=== PATIENT | female | born 1955 | race Caucasian/White ===

== ENCOUNTER 2017-08-20 18:22 | Inpatient (IN) | payer OTHER ==
[~2017-08-20] VITALS: Ht 152.4 cm; Wt 67.1 kg
[~2017-08-20 18:22] MED LIST: AMOXICILLIN500 MG ORAL; NAPROSYN500 M1 ORAL; TAPAZOLE10 MG ORAL; UNOBMED
[2017-08-20 19:06] VITALS: BP 167/73
[2017-08-20 19:33] LABS: BASOPHILS % (AUTO) 1.8 % (0.0-2.0); EOSINOPHILS % (AUTO) 2.6 % (0.0-3.0); HEMATOCRIT 48.2 % (37.0-47.0); HEMOGLOBIN 16.4 G/DL (12.0-16.0); LYMPHOCYTES % (AUTO) 32.8 % (20.0-45.0); MEAN CORPUSCULAR VOLUME 85 FL (80-99); NEUTROPHILS % (AUTO) 55.9 % (45.0-75.0); PLATELET COUNT 201 K/UL (150-450); RED BLOOD COUNT 5.67 M/UL (4.20-5.40); RED CELL DISTRIBUTION WIDTH 10.4 % (11.6-14.8); WHITE BLOOD COUNT 6.9 K/UL (4.8-10.8)
[2017-08-20 19:37] LABS: ANION GAP 9 mmol/L (5-15); BLOOD UREA NITROGEN 8 mg/dL (7-18); CALCIUM 9.8 MG/DL (8.5-10.1); CARBON DIOXIDE 27 MMOL/L (21-32); CHLORIDE 103 MMOL/L (98-107); CREATININE 0.7 MG/DL (0.55-1.30); POTASSIUM 4.2 MMOL/L (3.5-5.1); SODIUM 139 MMOL/L (136-145)
[2017-08-20 19:50] LABS: ALANINE AMINOTRANSFERASE 20 U/L (12-78); ALBUMIN 3.9 G/DL (3.4-5.0); ALBUMIN/GLOBULIN RATIO 0.9 (1.0-2.7); ALKALINE PHOSPHATASE 151 U/L (46-116); ASPARTATE AMINO TRANSFERASE 17 U/L (15-37); BILIRUBIN,TOTAL 0.5 MG/DL (0.2-1.0); CKMB < 0.5 NG/ML (0.0-3.6); CREATINE KINASE 40 U/L (26-308)
--- NOTE | 2017-08-20 20:09 | Emergency Room Report ---
History of Present Illness General Chief Complaint: Chest Pain Source: Patient Present Illness HPI 22-year-old female comes ER With a history of hyperthyroidism with complaint of having chest pressure on the left side parasternal area She reports it radiates to her left arm She reports his on for 2 days now, with no associated shortness of breath, leg pain, leg swelling, cough, hemoptysis, syncope She reports no nausea, no vomiting no diarrhea no abdominal pain She reports it was more intense this afternoon is now somewhat improved She is not taking any medications for it She has never had a chest pain evaluation with a stress test in the past Allergies: Coded Allergies: No Known Allergies (Verified , 07/05/11) Patient History Past Medical History: see triage record Now: No Reviewed Nursing Documentation: PMH: Agreed; PSxH: Agreed Nursing Documentation-PMH Past Medical History: No History, Except For Review of Systems All Other Systems: negative except mentioned in HPI Physical Exam Vital Signs Date Time Temp Pulse Resp B/P (MAP) Pulse Ox O2 Delivery O2 Flow Rate FiO2 08/20/17 18:30 98.3 112 22 167/73 97 Room Air 98.2 Sp02 EP Interpretation: reviewed, normal General Appearance: no apparent distress, alert, non-toxic Head: normocephalic Eyes: bilateral eye normal inspection, bilateral eye PERRL, bilateral eye EOMI ENT: normal ENT inspection, hearing grossly normal, normal pharynx, no angioedema, normal voice, moist mucus membranes Neck: normal inspection, full range of motion, supple, supple/symm/no masses Respiratory: chest non-tender, lungs clear, normal breath sounds, chest symmetrical, palpation of chest normal Cardiovascular #1: normal peripheral pulses, regular rate, rhythm Cardiovascular #2: 2+ radial (R), 2+ radial (L) Gastrointestinal: normal inspection, non tender, soft, no mass, no guarding, no rebound Rectal: deferred Genitourinary: normal inspection, no CVA tenderness Musculoskeletal: back normal, gait/station normal, normal range of motion, non- tender, no calf tenderness Neurologic: alert, responsive, consumer insights intern III-XII nml as tested, motor strength/tone normal, sensory intact, speech normal Psychiatric: judgement/insight normal, memory normal, mood/affect normal, no suicidal/homicidal ideation Skin: normal color, no rash, warm/dry, normal turgor Lymphatic: no adenopathy Medical Decision Making Diagnostic Impression: Primary Impression: Chest pain ER Course 62-year-old female with chest pressure EKG with right bundle and tachycardia Will chest CTA for possible PE However patient will still need to be admitted for chest pain rule out And stress test, normal workup thus far, patient with no active chest pain here Given aspirin but not NTG bc pain free currently Admitted to Dr. Mae for CP r/o CT. EKG Diagnostic Results EKG Time: 18:26 EP Interpretation: RBBB no st-t changes, no twi Rate: tachycardiac Rhythm: NSR ST Segments: no acute changes ASA given to the pt in ED: Yes Rhythm Strip Diag. Results Rhythm Strip Time: 20:08 EP Interpretation: yes Rate: 96 Rhythm: NSR, no PVC's, no ectopy Chest X-Ray Diagnostic Results Chest X-Ray Diagnostic Results : Chest X-Ray Ordered: Yes # of Views/Limited/Complete: 1 View Indication: Chest Pain EP Interpretation: Yes PA Xray: Interpretation reviewed Interpretation: no consolidation, no effusion, no pneumothorax, no acute cardiopulmonary disease Impression: No acute disease Electronically Signed by: Daljit Best MD CT/MRI/US Diagnostic Results CT/MRI/US Diagnostic Results : Imaging Test Ordered: CTA chest Impression negative for PE Last Vital Signs Date Time Temp Pulse Resp B/P (MAP) Pulse Ox O2 Delivery O2 Flow Rate FiO2 08/20/17 19:06 112 22 Room Air 08/20/17 19:06 167/73 97 08/20/17 18:30 98.3 98.2 Disposition: ADMITTED INPATIENT Admit Decision Time: 21:41 Condition: Stable Signed Out To: DALJIT Bearden M.D August 20, 2017 20:09
[2017-08-20] MEDS ORDERED: Nitroglycerin Subl 0.4mg tab SL PRN ×2 (20:15→22:15)
[2017-08-20] MEDS ORDERED: Isovue-370 150ml vial INJ PRN (20:15)
[2017-08-20] MEDS ORDERED: Albuterol/Ipratropium 3ml neb HHN PRN (22:15)
[2017-08-20] MEDS ORDERED: Ketorolac 30mg Inj IV PRN (22:15)
[2017-08-20] MEDS ORDERED: Enalaprilat 2.5mg/2ml Inj IV PRN (22:15)
[2017-08-20] MEDS ORDERED: dilTIAZem HCl 25mg/5ml Inj IV PRN (22:15)
[2017-08-20] MEDS ORDERED: Miralax 17gm pkt ORAL PRN (22:15)
[2017-08-20 22:17] VITALS: BP 117/59
[2017-08-20 22:30] VITALS: BP 114/65
[2017-08-21] VITALS: BP 121/68
[2017-08-21 04:00] VITALS: BP 112/55
[2017-08-21 08:00] VITALS: BP 118/55
[2017-08-21 08:54] LABS: BASOPHILS % (AUTO) 1.9 % (0.0-2.0); EOSINOPHILS % (AUTO) 4.2 % (0.0-3.0); HEMATOCRIT 45.4 % (37.0-47.0); HEMOGLOBIN 14.9 G/DL (12.0-16.0); LYMPHOCYTES % (AUTO) 38.4 % (20.0-45.0); MEAN CORPUSCULAR VOLUME 86 FL (80-99); NEUTROPHILS % (AUTO) 47.5 % (45.0-75.0); PLATELET COUNT 183 K/UL (150-450); RED BLOOD COUNT 5.28 M/UL (4.20-5.40); RED CELL DISTRIBUTION WIDTH 10.9 % (11.6-14.8); WHITE BLOOD COUNT 6.4 K/UL (4.8-10.8)
[2017-08-21] MEDS ORDERED: Aspirin Baby 81mg ORAL SCH (09:00)
[2017-08-21] MEDS ORDERED: Heparin 5000 units/ml inj SUBQ SCH (09:00)
[2017-08-21 09:21] LABS: INR 0.9 (0.9-1.1)
--- NOTE | 2017-08-21 09:49 | Diagnostic Imaging Report ---
Indication: Chest pain Technique: Continuous helical transaxial imaging of the chest was obtained from the thoracic inlet to the upper abdomen during rapid intravenous contrast administration. Arterial phase of enhancement obtained. Coronal 2-D reformats were also obtained and maximum intensity projection images in multiple planes. Study obtained in a Siemens sensation [address] Automatic Exposure Control was utilized. Total Dose length Product (DLP): 576.[address] Dose Index Volume (CTDIvol): 18.72 mGy Comparison: None Findings: The pulmonary artery is well opacified and shows no filling defects. There is no adenopathy, pleural or pericardial effusions are identified. There is no aortic dissection or aneurysm identified within the chest. The lungs are clear. There is mild posterior basilar atelectasis demonstrated. Visualized part of the upper abdomen is unremarkable. The thyroid gland is enlarged and partially seen on this study. Impression: Negative CTA of the chest Enlarged thyroid gland. Correlate clinically The CT scanner at [facility] is accredited by the [employer] and the scans are performed using dose optimization techniques as appropriate to a performed exam including Automatic Exposure control.
[2017-08-21 10:02] LABS: CHOLESTEROL 163 MG/DL (< 200); HDL CHOLESTEROL 54 MG/DL (40-60); TRIGLYCERIDES 51 MG/DL (30-150)
--- NOTE | 2017-08-21 11:33 | Diagnostic Imaging Report ---
Indication: Chest pain Comparison: 07/04/2011 A single view chest radiograph was obtained. Findings: Cardiomediastinal appearance is within normal limits for age. Pulmonary vascularity is appropriate. The diaphragmatic contour is smooth and costophrenic angles are sharp. No pleural effusions are identified. The bones are unremarkable. Impression: No acute findings
[2017-08-21 12:00] VITALS: BP 129/67
--- NOTE | 2017-08-21 12:58 | History and Physical ---
History of Present Illness General Date patient seen: August 21, 2017 Reason for Hospitalization: Chest Pain Present Illness HPI pt was admitted last night through Er with CC of chest pain. she was treated symptomatically in ER and admitted to telemetry. Cardiology consult was called , Echo was ordered and done and reviewed. Multiple troponin were done. Pt decided to leave ama this morning. She didn't want to wait for cloth washer to see her. Allergies: Coded Allergies: No Known Allergies (Verified , 07/05/11) Medication History Scheduled Amoxicillin* (Amoxil*), 500 MG ORAL THREE TIMES A DAY Methimazole (Methimazole), 10 MG ORAL DAILY, (Reported) Naproxen* (Naprosyn*), 500 MG ORAL TWICE A DAY Patient History Healthcare decision maker Keyla Barragan Resuscitation status Full Code Advanced Directive on File Review of Systems Cardiovascular: Reports: chest pain Physical Exam General Appearance: WD/WN Lines, tubes and drains: peripheral, trach HEENT: normocephalic, atraumatic Neck: non-tender, normal alignment Respiratory/Chest: chest wall non-tender, lungs clear Breasts: no masses Cardiovascular/Chest: normal peripheral pulses Abdomen: non tender Last 24 Hour Vital Signs Date Time Temp Pulse Resp B/P (MAP) Pulse Ox O2 Delivery O2 Flow Rate FiO2 08/21/17 08:00 97.7 86 24 118/55 86 Room Air 97.7 08/21/17 08:00 95 08/21/17 04:00 97.5 83 20 112/55 94 Room Air 97.5 08/21/17 04:00 75 08/21/17 00:00 98.2 87 20 121/68 96 Room Air 98.2 08/21/17 00:00 77 08/20/17 22:30 98.2 100 18 114/65 98 Room Air 98.2 08/20/17 22:20 98.3 98 20 117/59 98 Room Air 98.3 08/20/17 22:17 98.3 98 20 117/59 98 Room Air 98.3 08/20/17 19:06 112 22 Room Air 08/20/17 19:06 99 23 167/73 97 Room Air 08/20/17 18:30 98.3 112 22 167/73 97 Room Air 98.2 Intake and Output 08/20/17 08/21/17 19:00 07:00 Intake Total 200 ml Balance 200 ml Intake Oral 200 ml Laboratory Tests Test 08/20/17 18:57 08/21/17 07:45 White Blood Count 6.9 K/UL (4.8-10.8) 6.4 K/UL (4.8-10.8) Red Blood Count 5.67 M/UL (4.20-5.40) H 5.28 M/UL (4.20-5.40) Hemoglobin 16.4 G/DL (12.0-16.0) H 14.9 G/DL (12.0-16.0) Hematocrit 48.2 % (37.0-47.0) H 45.4 % (37.0-47.0) Mean Corpuscular Volume 85 FL (80-99) 86 FL (80-99) Mean Corpuscular Hemoglobin 28.9 PG (27.0-31.0) 28.3 PG (27.0-31.0) Mean Corpuscular Hemoglobin Concent 34.0 G/DL (32.0-36.0) 32.9 G/DL (32.0-36.0) Red Cell Distribution Width 10.4 % (11.6-14.8) L 10.9 % (11.6-14.8) L Platelet Count 201 K/UL (150-450) 183 K/UL (150-450) Mean Platelet Volume 8.4 FL (6.5-10.1) 8.9 FL (6.5-10.1) Neutrophils (%) (Auto) 55.9 % (45.0-75.0) 47.5 % (45.0-75.0) Lymphocytes (%) (Auto) 32.8 % (20.0-45.0) 38.4 % (20.0-45.0) Monocytes (%) (Auto) 7.0 % (1.0-10.0) 8.0 % (1.0-10.0) Eosinophils (%) (Auto) 2.6 % (0.0-3.0) 4.2 % (0.0-3.0) H Basophils (%) (Auto) 1.8 % (0.0-2.0) 1.9 % (0.0-2.0) Sodium Level 139 MMOL/L (136-145) Potassium Level 4.2 MMOL/L (3.5-5.1) Chloride Level 103 MMOL/L (98-107) Carbon Dioxide Level 27 MMOL/L (21-32) Anion Gap 9 mmol/L (5-15) Blood Urea Nitrogen 8 mg/dL (7-18) Creatinine 0.7 MG/DL (0.55-1.30) Estimat Glomerular Filtration Rate > 60 mL/min (>60) Glucose Level 154 MG/DL (74-106) H Calcium Level 9.8 MG/DL (8.5-10.1) Total Bilirubin 0.5 MG/DL (0.2-1.0) Aspartate Amino Transf (AST/SGOT) 17 U/L (15-37) Alanine Aminotransferase (ALT/SGPT) 20 U/L (12-78) Alkaline Phosphatase 151 U/L (46-116) H Total Creatine Kinase 40 U/L (26-308) Creatine Kinase MB < 0.5 NG/ML (0.0-3.6) Creatine Kinase MB Relative Index 1.2 Troponin I 0.000 ng/mL (0.000-0.056) 0.000 ng/mL (0.000-0.056) Pro-B-Type Natriuretic Peptide 141 pg/mL (0-125) H Total Protein 8.4 G/DL (6.4-8.2) H Albumin 3.9 G/DL (3.4-5.0) Globulin 4.5 g/dL Albumin/Globulin Ratio 0.9 (1.0-2.7) L Prothrombin Time 9.8 SEC (9.30-11.50) Prothromb Time International Ratio 0.9 (0.9-1.1) Activated Partial Thromboplast Time 26 SEC (23-33) C-Reactive Protein, Quantitative < 0.4 mg/dL (0.00-0.90) Triglycerides Level 51 MG/DL (30-150) Cholesterol Level 163 MG/DL (< 200) LDL Cholesterol 104 mg/dL (<100) H HDL Cholesterol 54 MG/DL (40-60) Cholesterol/HDL Ratio 3.0 (3.3-4.4) L Thyroid Stimulating Hormone (TSH) < 0.007 uiU/mL (0.358-3.740) Height (Feet): 5 Weight (Pounds): 148 Medications Current Medications Medications (Trade) Dose Ordered Sig/Ashlye Route PRN Reason Start Time Stop Time Status Last Admin Dose Admin Acetaminophen (Tylenol) 650 mg Q4H PRN ORAL FEVER 08/20/17 22:15 09/19/17 22:14 Albuterol/ Ipratropium (Albuterol/ Ipratropium) 3 ml EVERY 4 HOURS PRN HHN Shortness of Breath 08/20/17 22:15 08/25/17 22:14 Aspirin (ASA) 162 mg DAILY ORAL 08/21/17 09:00 09/20/17 08:59 08/21/17 08:56 Diltiazem HCl (Cardizem) 10 mg EVERY HOUR PRN IV heart rate more than 120, 08/20/17 22:15 09/19/17 22:14 Enalaprilat (Vasotec) 2.5 mg EVERY 6 HOURS PRN IV sbp more than 160 08/20/17 22:15 09/19/17 22:14 Heparin Sodium (Porcine) (Heparin 5000 units/ml) 5,000 units EVERY 12 HOURS SUBQ 08/21/17 09:00 09/20/17 08:59 08/21/17 09:00 Iopamidol (Isovue-370 150ml) 150 ml NOW PRN INJ Radiology Procedure 08/20/17 20:15 08/22/17 20:04 Ketorolac Tromethamine (Toradol 30mg) 30 mg Q6HR PRN IV moderate pain ( 4-6) 08/20/17 22:15 08/25/17 22:14 Methimazole (Tapazole) 10 mg DAILY ORAL 08/22/17 09:00 09/21/17 08:59 Nitroglycerin (Ntg) 0.4 mg PRN PRN SL Prn Chest Pain 08/20/17 22:15 09/19/17 22:14 Nitroglycerin (Ntg) 0.4 mg Q5M PRN SL Prn Chest Pain 08/20/17 20:15 09/19/17 20:14 Ondansetron HCl (Zofran) 4 mg Q6H PRN IVP Nausea & Vomiting 08/20/17 22:15 09/19/17 22:14 Polyethylene Glycol (Miralax) 17 gm DAILYPRN PRN ORAL Constipation 08/20/17 22:15 09/19/17 22:14 Temazepam (Restoril) 15 mg HSPRN PRN ORAL Insomnia 08/20/17 22:15 08/27/17 22:14 Assessment/Plan Problem List: (1) Chest pain ICD Codes: R07.9 - Chest pain, unspecified SNOMED: [id number] Assessment/Plan serial ekg, troponin echo done and reviewed, pt didn't want to way to be seen . Odalis Mae MD August 21, 2017 12:58
--- NOTE | 2017-08-21 18:13 | Cardiology Report ---
APPROVED REPORT EKG Measurement Heart [id number] OR [id number] Sinus tachycardia Biatrial enlargement Right bundle branch block Abnormal ECG
--- NOTE | 2017-08-22 00:15 | Consultation ---
DATE OF CONSULTATION: 08/21/2017 NOTE: POOR AUDIO HEMATOLOGY/ONCOLOGY CONSULTATION CONSULTING PHYSICIAN: Lane Leblanc M.D. REQUESTING PHYSICIAN: Odalis Mae M.D. REASON FOR CONSULTATION: Evaluation of erythrocytosis as well as . IDENTIFICATION DATA: Dear Dr. Mae, The patient is a pleasant 62-year-old female with past medical history, which is significant for right bundle-branch block and tachycardia. She had a CAT scan that was completed. It shows negative for PE. She has been to the ER multiple times in the past with pharyngitis as well as pain, past medical history again significant for hypertension, at this time presents to the ER with chest pain radiating to the left arm. It has been ongoing for the past several days. No nausea. No vomiting. No diarrhea. No constipation. Noted to have a hemoglobin, which is elevated at 16.4 . Hematology Service was consulted for further evaluation and treatment. PAST MEDICAL HISTORY: As noted above. PAST SURGICAL HISTORY: None noted. ALLERGIES: No known drug allergies. REVIEW OF SYSTEMS: CONSTITUTIONAL: No fevers, chills, or night sweats. SKIN: No rash, bumps, or itching. HEENT: No headache, hearing or vision changes. BREASTS: No lumps, pain, or discharge. PULMONARY: No cough, sputum, or shortness of breath. GASTROINTESTINAL: No nausea, vomiting, or diarrhea. GENITOURINARY: No dysuria, frequency, or urgency. MUSCULOSKELETAL: No joint swelling, muscle pain, or trauma. LABORATORY DATA: INR 0.9. BUN of 8 and creatinine 0.7. WBC 6.9, hemoglobin 16.4, hematocrit 48, and platelet count 201,000. IMAGING: CTA of the chest reviewed shows negative CT of the chest . ASSESSMENT AND RECOMMENDATIONS: 1. Erythrocytosis potentially secondary to dehydration versus other causes. We will need to consider further workup pulmonary status. The patient has had imaging performed. She has had a CTA completed and is negative at this time. She has had a chest x-ray, no acute findings noted. Pulmonary vascularity within normal limits. 2. Eosinophilia, elevated at 4.3. WBC count currently is at 6.4. Closely monitor, potentially secondary to recently started medications versus other causes. 3. Chest pain, rule out acute coronary syndrome. Hematology/Oncology Service is ongoing for the past several days and to be seen by wrist liner. A 2D echo is pending troponin and EKG. 4. Hyperlipidemia. The patient is currently on statins. LDL goal less than 100. 5. Right bundle-branch block. No PVCs noted. Normal sinus rhythm. I appreciate the consultation. Lane Leblanc M.D. DR: ANDRY JOB#: [id number] CC:
--- NOTE | 2017-08-22 10:58 | Cardiology Report ---
APPROVED REPORT EXAM: Two-dimensional and M-mode echocardiogram with Doppler and color Doppler. INDICATION LV FUNCTION M-Mode DIMENSIONS IVSd1.0 (0.7-1.1cm)Left Atrium (MM)3.3 (1.6-4.0cm) LVDd3.6 (3.5-5.6cm)Aortic Root3.1 (2.0-3.7cm) PWd1.1 (0.7-1.1cm)Aortic Cusp Exc.1.8 (1.5-2.0cm) IVSs1.2 cm LVDs2.1 (2.5-4.0cm) PWs1.4 cm Normal left ventricular chamber size, systolic function and wall motion. Left ventricular ejection fraction estimated to be 65-70 %. No evidence of left ventricular hypertrophy. No evidence of pericardial effusion. All other cardiac chamber sizes are within normal limits. Focal aortic valve sclerosis with adequate cusp excursion. Thickened mitral valve leaflets with normal excursion. Mitral annulus and aortic root calcification. Normal pulmonic valve structure. Normal tricuspid valve structure. IVC at normal size with physiologic collapse. A color flow and spectral Doppler study was performed and revealed: Mild aortic regurgitation. Trace mitral regurgitation. Mitral diastolic velocities suggest reduced left ventricular relaxation c/w mild LV diastolic dysfunction (Grade I ). Trace tricuspid regurgitation. Tricuspid systolic velocities suggests peak right ventricular systolic pressure of 29 mmHg No Pulmonic regurgitation present.
--- NOTE | 2017-08-22 13:12 | Discharge Summary ---
Discharge Summary Discharge Summary Discharge Summary DATE OF ADMISSION: 08/20/2017 DATE OF DISCHARGE: 08/21/2017 CONSULTANTS: Dr. Lane Leblanc [facility] HOSPITAL COURSE: Patient is a 62-year-old female, presented to ER complaining of chest pain. She has history of hyperthyroidism and was complaining of chest pressure on the left parasternal area radiating to the left arm. Symptoms has been ongoing for 2 days, there was no associated shortness of breath, leg pain, leg swelling, cough, hemoptysis or syncope. On evaluation at ED, initial troponin was negative. EKG with right bundle branch block, no ST to T wave changes. Chest x-ray showed no acute findings. Chest CTA was negative. She was given aspirin. She was then admitted for evaluation of acute coronary syndrome. She had erythrocytosis, hemoglobin of 16, hematocrit 48. She also had eosinophilia 4.3. Echocardiogram done showed EF 65-70%. Full treatment was not carried out as patient left AGAINST MEDICAL ADVICE. FINAL DIAGNOSES: Chest pain Erythrocytosis Eosinophilia Hyperlipidemia Right bundle branch block DISPOSITION: Patient left AMA I have been assigned to dictate discharge summary on this account, and I was not involved in the patient's management. Bobbi Oswald NP August 22, 2017 13:12
== END 2017-08-21 12:00 | disposition left against medical advice (07) | DRG 313 ==
LOC: EMR 20:24 → 2E 20:25 → EDBEDREQ 21:16
DX: R07.9 Chest pain, unspecified (principal); D75.1 Secondary polycythemia; D72.1 Eosinophilia; E78.5 Hyperlipidemia, unspecified; I45.10 Unspecified right bundle-branch block; E86.0 Dehydration
CPT/HCPCS: 36415; 71045; 71275; 80053; 80061; 82550; 82553; 83880; 84443; 84484; 85025; 85610; 85730; 86140; 93005; 93306; 99285

== ENCOUNTER 2019-05-15 23:41 | Emergency (ER) | payer OTHER ==
[~2019-05-15] VITALS: Ht 152.4 cm; Wt 6.4 kg
--- NOTE | 2019-05-15 23:45 | NUR ---
pt not in waiting room
[2019-05-15] MEDS ORDERED: LOPRESSOR5 MG/5 ML PO (23:58)
[2019-05-16] VITALS: BP 140/73
--- NOTE | 2019-05-16 | NUR ---
ED Nurse Note: Pt walked into ED c/o palpitations today at 2130.Stated that she feels like her heart is pounding and beating fast. Pt is taking lopressor 25mg but hasnt taken the meds for 2 days because she ran out of it. Pt has hx of afib. Denies chest pain, dizziness. Not in any distress. No SOB. HR is 120.
--- NOTE | 2019-05-16 00:05 | NUR ---
ED Nurse Note: ERMD at bedside.
[2019-05-16] MEDS ORDERED: dilTIAZem HCl 25mg/5ml Inj IV ONE (00:15)
--- NOTE | 2019-05-16 00:19 | NUR ---
ED Nurse Note: IV line established. Blood and urine specimen collected and sent to lab.
[2019-05-16 00:46] LABS: APPEARANCE,URINE CLEAR; BILIRUBIN, URINE NEGATIVE (NEGATIVE); COLOR,URINE PALE YELLOW; GLUCOSE, URINE (UA) NEGATIVE (NEGATIVE); KETONES,URINE NEGATIVE (NEGATIVE); LEUKOCYTE ESTERASE ,URINE 1+ (NEGATIVE); NITRITE,URINE NEGATIVE (NEGATIVE); PH,URINE 6 (4.5-8.0); PROTEIN,URINE NEGATIVE (NEGATIVE); UROBILINOGEN,URINE NORMAL MG/DL (0.0-1.0)
[2019-05-16 00:46] LABS: BASOPHILS % (AUTO) 1.9 % (0.0-2.0); EOSINOPHILS % (AUTO) 2.6 % (0.0-3.0); HEMATOCRIT 46.9 % (37.0-47.0); HEMOGLOBIN 16.8 G/DL (12.0-16.0); LYMPHOCYTES % (AUTO) 31.6 % (20.0-45.0); MEAN CORPUSCULAR VOLUME 86 FL (80-99); MONOCYTES % (AUTO) 7.4 % (1.0-10.0); NEUTROPHILS % (AUTO) 56.5 % (45.0-75.0); PLATELET COUNT 263 K/UL (150-450); RED BLOOD COUNT 5.48 M/UL (4.20-5.40); RED CELL DISTRIBUTION WIDTH 11.3 % (11.6-14.8); WHITE BLOOD COUNT 9.4 K/UL (4.8-10.8)
[2019-05-16 00:59] LABS: ANION GAP 9 mmol/L (5-15); BLOOD UREA NITROGEN 8 mg/dL (7-18); CALCIUM 8.8 MG/DL (8.5-10.1); CARBON DIOXIDE 27 MMOL/L (21-32); CHLORIDE 103 MMOL/L (98-107); CREATININE 0.7 MG/DL (0.55-1.30); POTASSIUM 3.6 MMOL/L (3.5-5.1); SODIUM 139 MMOL/L (136-145)
--- NOTE | 2019-05-16 00:59 | Diagnostic Imaging Report ---
EXAM: XR Chest, 1 View CLINICAL HISTORY: PREOP TECHNIQUE: Frontal view of the chest. COMPARISON: 04/12/2019. FINDINGS: Lungs: Possible mild pulmonary vascular congestion. No focal consolidation. Pleural space: Unremarkable. No pneumothorax. Heart: Unremarkable. No cardiomegaly. Mediastinum: Unremarkable. Bones/joints: Unremarkable. IMPRESSION: Possible mild pulmonary vascular congestion. No focal consolidation.
[2019-05-16 01:12] LABS: ALANINE AMINOTRANSFERASE 17 U/L (12-78); ALBUMIN 3.9 G/DL (3.4-5.0); ALKALINE PHOSPHATASE 106 U/L (46-116); ASPARTATE AMINO TRANSFERASE 18 U/L (15-37); BILIRUBIN,TOTAL 0.4 MG/DL (0.2-1.0)
--- NOTE | 2019-05-16 01:17 | Emergency Room Report ---
History of Present Illness General Chief Complaint: Palpitations Source: Patient Present Illness HPI 63-year-old female presents with palpitations, started at 2130, patient reports that she ran out of her Lopressor 3 days ago, she has been taking her Eliquis every day, her palpitations are aggravated by not taking her Lopressor alleviated by taking her Lopressor severity is mild, constant, no chest pain no shortness of breath no nausea no vomiting patient presents for evaluation Allergies: Coded Allergies: No Known Allergies (Verified , 07/05/11) Patient History Past Medical History: see triage record Reviewed Nursing Documentation: PMH: Agreed; PSxH: Agreed Nursing Documentation-PMH Hx Cancer: No Hx Gastrointestinal Problems: No Hx Neurological Problems: No - hyperthyrodism Review of Systems All Other Systems: negative except mentioned in HPI Physical Exam Vital Signs Date Time Temp Pulse Resp B/P (MAP) Pulse Ox O2 Delivery O2 Flow Rate FiO2 05/15/19 23:52 98.1 120 16 140/73 (95) 95 Room Air Sp02 EP Interpretation: reviewed, normal General Appearance: well appearing, no apparent distress, alert Head: normocephalic, atraumatic Eyes: bilateral eye PERRL, bilateral eye EOMI ENT: uvula midline, moist mucus membranes Neck: supple, thyroid normal, supple/symm/no masses Respiratory: lungs clear, no respiratory distress, no retraction, no accessory muscle use Cardiovascular #1: normal peripheral pulses, no edema, no gallop, no murmur, tachycardia, irregularly irregular Gastrointestinal: non tender, soft, no guarding, no rebound Musculoskeletal: normal inspection Neurologic: alert, oriented x3 Psychiatric: mood/affect normal Skin: no rash, warm/dry Medical Decision Making Diagnostic Impression: Primary Impression: Palpitations Additional Impression: Atrial fibrillation Qualified Codes: I48.0 - Paroxysmal atrial fibrillation ER Course 63-year-old female presents with palpitations, tachycardia, patient ran out of her metoprolol Patient has been taking her Eliquis every day, will refill her metoprolol 1 dose of diltiazem was given and her heart rate improved Repeat EK 14: NSR, rate 70, QTc 462, right bundle branch block, no acute ST elevations Disposition home with return precautions Laboratory Tests Test 05/16/19 00:02 05/16/19 00:17 Urine Color Pale yellow Urine Appearance Clear Urine pH 6 (4.5-8.0) Urine Specific [place] 1.005 (1.005-1.035) Urine Protein Negative (NEGATIVE) Urine Glucose (UA) Negative (NEGATIVE) Urine Ketones Negative (NEGATIVE) Urine Blood 2+ (NEGATIVE) H Urine Nitrite Negative (NEGATIVE) Urine Bilirubin Negative (NEGATIVE) Urine Urobilinogen Normal MG/DL (0.0-1.0) Urine Leukocyte Esterase 1+ (NEGATIVE) H Urine RBC 0-2 /HPF (0 - 2) Urine WBC 0-2 /HPF (0 - 2) Urine Squamous Epithelial Cells Occasional /LPF Urine Bacteria Occasional /HPF (NONE) White Blood Count 9.4 K/UL (4.8-10.8) Red Blood Count 5.48 M/UL (4.20-5.40) H Hemoglobin 16.8 G/DL (12.0-16.0) H Hematocrit 46.9 % (37.0-47.0) Mean Corpuscular Volume 86 FL (80-99) Mean Corpuscular Hemoglobin 30.7 PG (27.0-31.0) Mean Corpuscular Hemoglobin Concent 35.9 G/DL (32.0-36.0) Red Cell Distribution Width 11.3 % (11.6-14.8) L Platelet Count 263 K/UL (150-450) Mean Platelet Volume 7.9 FL (6.5-10.1) Neutrophils (%) (Auto) 56.5 % (45.0-75.0) Lymphocytes (%) (Auto) 31.6 % (20.0-45.0) Monocytes (%) (Auto) 7.4 % (1.0-10.0) Eosinophils (%) (Auto) 2.6 % (0.0-3.0) Basophils (%) (Auto) 1.9 % (0.0-2.0) Prothrombin Time 10.3 SEC (9.30-11.50) Prothrombin Time INR 1.0 (0.9-1.1) Activated Partial Thromboplast Time 30 SEC (23-33) Sodium Level 139 MMOL/L (136-145) Potassium Level 3.6 MMOL/L (3.5-5.1) Chloride Level 103 MMOL/L (98-107) Carbon Dioxide Level 27 MMOL/L (21-32) Anion Gap 9 mmol/L (5-15) Blood Urea Nitrogen 8 mg/dL (7-18) Creatinine 0.7 MG/DL (0.55-1.30) Estimate Glomerular Filtration Rate > 60 mL/min (>60) Glucose Level 117 MG/DL (74-106) H Calcium Level 8.8 MG/DL (8.5-10.1) Total Bilirubin 0.4 MG/DL (0.2-1.0) Aspartate Amino Transferase (AST) 18 U/L (15-37) Alanine Aminotransferase (ALT) 17 U/L (12-78) Alkaline Phosphatase 106 U/L (46-116) Troponin I 0.000 ng/mL (0.000-0.056) Pro-B-Type Natriuretic Peptide 153 pg/mL (0-125) H Total Protein 7.9 G/DL (6.4-8.2) Albumin 3.9 G/DL (3.4-5.0) Globulin 4.0 g/dL Albumin/Globulin Ratio 1.0 (1.0-2.7) Thyroid Stimulating Hormone (TSH) 1.998 uiU/mL (0.358-3.740) Free Thyroxine 0.33 NG/DL (0.76-1.46) L Free Triiodothyronine 2.3 pg/mL (2.3-4.2) EKG Diagnostic Results EKG Time: 00:15 EP Interpretation: Sinus tachycardia, rate 109, QTc 495, no acute ST elevations , right axis de Rhythm Strip Diag. Results Rhythm Strip Time: 01:16 EP Interpretation: yes Rate: 76 Rhythm: NSR, no PVC's, no ectopy Chest X-Ray Diagnostic Results Chest X-Ray Diagnostic Results : Chest X-Ray Ordered: Yes # of Views/Limited/Complete: 1 View Indication: Chest Pain EP Interpretation: Yes Interpretation: no consolidation, no effusion, no pneumothorax, no acute cardiopulmonary disease Impression: No acute disease Electronically Signed by: Pedro Zurita MD Last Vital Signs Date Time Temp Pulse Resp B/P (MAP) Pulse Ox O2 Delivery O2 Flow Rate FiO2 05/16/19 00:23 120 140/73 05/16/19 00:00 98.1 16 95 Room Air Disposition: HOME, SELF-CARE Condition: Stable Scripts Metoprolol Succinate* (METOPROLOL SUCCINATE*) 25 Mg Tab.er.24h 25 MG ORAL DAILY, #30 TAB Prov: Pedro Zurita MD 05/16/19 Ref[facility]: [facility]. [facility] Patient Instructions: Atrial Fibrillation, [id number] Additional Instructions: The patient was provided with discharge instructions, notified to follow-up with a primary care doctor and or specialist in the next 24-48 hours, and to return to the ED if they have worsening of their symptoms. Please note that this report is being documented using [employer] technology. This can lead to erroneous entry secondary to incorrect interpretation by the dictating instrument. Pedro Zurita MD May 16, 2019 01:17
[2019-05-16 02:01] VITALS: BP 97/56
[2019-05-16] MEDS ORDERED: METOPROLOL SUCC25 MG ORAL (02:21)
[2019-05-16 02:30] VITALS: BP_SYST 98; BP_DIAS 52; BP_DIAS 60
--- NOTE | 2019-05-16 02:30 | NUR ---
ED Nurse Note: Pt cleared by ERMD for discharge. DC instructions/prescription was given and explained to pt and verbalized understanding of teachings. All medical deviecs such as ID band and IV line removed. Pt is AAO x4, ambulatory and left with all personal belongings.
== END 2019-05-16 02:30 | disposition home or self-care (01) ==
LOC: EMR 05-16 02:30
DX: R00.2 Palpitations (principal); I48.0 Paroxysmal atrial fibrillation; Z79.01 Long term (current) use of anticoagulants; I45.10 Unspecified right bundle-branch block; R00.0 Tachycardia, unspecified
CPT/HCPCS: 36415; 71045; 80053; 81003; 83880; 84439; 84443; 84481; 84484; 85025; 85610; 85730; 93005; 96361; 96374; 99284; J7030

== ENCOUNTER 2019-12-28 01:24 | Emergency (ER) | payer SELFPAY ==
[~2019-12-28] VITALS: Ht 157.5 cm; Wt 68.0 kg
[~2019-12-28 01:24] MED LIST changes: +LOPRESSOR5 MG/5 ML PO; +METOPROLOL SUCC25 MG ORAL
[2019-12-28] MEDS ORDERED: ASPIRIN81 MG ORAL (01:36)
--- NOTE | 2019-12-28 01:37 | NUR ---
ED Nurse Note: Patient brought in by ambulance [id number] from home d/t palpitations. Per pt, she has had history of afib and has to be cardioverted. Patient aao x 4 and ambulatory with steady gait. Patient on nasal cannula 2L upon arrival, changed into gown and placed on athletic monitor. No acute distress noted during assessment.
[2019-12-28 01:39] VITALS: BP 140/107
[2019-12-28] MEDS ORDERED: dilTIAZem HCl 25mg/5ml Inj IVP ONE ×2 (01:45→02:00)
--- NOTE | 2019-12-28 01:46 | Emergency Room Report ---
History of Present Illness General Chief Complaint: Palpitations Source: Patient Present Illness HPI 64-year-old female with a history of atrial fibrillation and high blood pressure. She is taking metoprolol for it. She was on Eliquis but because of the cost, her doctor just put her on aspirin. She presents with chief complaint of palpitation. Onset about 2 hours ago. She said her heart rate was beating fast. She took an extra dose of metoprolol. He said it did not help. No shortness of breath. No fever or chills. No cough or congestion. No chest pain. Similar symptom in the past. She said this year she had 4 episodes already. She does admit to weight gain during the pandemic. She said her blood pressures been running high. Allergies: Coded Allergies: No Known Allergies (Verified , 12/28/19) COVID-19 Screening Contact w/high risk pt: No Experienced COVID-19 symptoms?: No COVID-19 Testing performed PASTA MAKER: No Patient History Past Medical History: see triage record, old chart reviewed, HTN, AFib Past Surgical History: none Pertinent Family History: other Social History: Reports: smoking Last Menstrual Period: n/a Now: No Immunizations: other Reviewed Nursing Documentation: PMH: Agreed; PSxH: Agreed Nursing Documentation-PMH Past Medical History: No History, Except For Hx Cancer: No Hx Gastrointestinal Problems: No Hx Neurological Problems: No - hyperthyrodism Review of Systems Eye: Denies: eye pain, blurred vision ENT: Denies: ear pain, nose congestion, throat swelling Respiratory: Denies: cough, shortness of breath Cardiovascular: Reports: palpitations; Denies: chest pain Gastrointestinal: Denies: abdominal pain, diarrhea, nausea, vomiting Musculoskeletal: Denies: back pain, joint pain Skin: Denies: rash Neurological: Denies: headache, numbness Endocrine: Denies: increased thirst, increased urine Hematologic/Lymphatic: Denies: easy bruising All Other Systems: negative except mentioned in HPI Physical Exam Vital Signs Date Time Temp Pulse Resp B/P (MAP) Pulse Ox O2 Delivery O2 Flow Rate FiO2 12/28/19 01:21 98.8 173 20 200/91 (127) 98 Room Air 12/28/19 01:39 2.0 Vitals with high blood pressure. Sp02 EP Interpretation: reviewed, normal General Appearance: well appearing, no apparent distress, alert, obese Head: normocephalic, atraumatic Eyes: bilateral eye PERRL, bilateral eye EOMI ENT: hearing grossly normal, normal pharynx Neck: full range of motion, supple, no meningismus Respiratory: chest non-tender, lungs clear, normal breath sounds Cardiovascular #1: no murmur, tachycardia, irregularly irregular Gastrointestinal: normal bowel sounds, non tender, no mass, no organomegaly, no bruit, non-distended Musculoskeletal: back normal, normal range of motion, gait/station normal Psychiatric: mood/affect normal Medical Decision Making Diagnostic Impression: Primary Impression: Paroxysmal atrial fibrillation with RVR Additional Impression: Hypertension Qualified Codes: I10 - Essential (primary) hypertension ER Course This patient presents with paroxysmal A. fib. No evidence of ACS, PE, dissection. She is back in sinus now. Because of her weight gain, her blood pressure is elevated. We will increase her metoprolol. EKG Diagnostic Results Rate: tachycardiac Rhythm: other - Atrial fibrillation ST Segments: other - Bifascicular block Rhythm Strip Diag. Results EP Interpretation: yes Rate: 73 Rhythm: NSR, no PVC's, no ectopy Chest X-Ray Diagnostic Results Chest X-Ray Diagnostic Results : Chest X-Ray Ordered: Yes # of Views/Limited/Complete: 1 View Indication: Shortness of Breath EP Interpretation: Yes Interpretation: no consolidation, no effusion, no pneumothorax, no acute cardiopulmonary disease Impression: No acute disease Electronically Signed by: Bib Agosto MD Last Vital Signs Date Time Temp Pulse Resp B/P (MAP) Pulse Ox O2 Delivery O2 Flow Rate FiO2 12/28/19 01:39 98.8 132 24 140/107 100 Nasal Cannula 2.0 Status: improved Disposition: HOME, SELF-CARE Condition: Stable Scripts Metoprolol Succinate* (METOPROLOL SUCCINATE*) 100 Mg Tab.er.24h 50 MG ORAL DAILY, #90 TAB Prov: Bib Agosto MD 12/28/19 Additional Instructions: Follow-up with your doctor in 7 days. You may benefit from seeing a carcass trimmer. Increase your blood pressure medication to 50 mg a day. Return if symptoms worsen. Bib Agosto MD Dec 28, 2019 01:46
[2019-12-28 01:57] LABS: BASOPHILS % (AUTO) 2.9 % (0.0-2.0); HEMATOCRIT 44.4 % (37.0-47.0); HEMOGLOBIN 15.7 G/DL (12.0-16.0); MEAN CORPUSCULAR VOLUME 86 FL (80-99); MONOCYTES % (AUTO) 9.5 % (1.0-10.0); NEUTROPHILS % (AUTO) 52.6 % (45.0-75.0); PLATELET COUNT 208 K/UL (150-450); RED BLOOD COUNT 5.17 M/UL (4.20-5.40); RED CELL DISTRIBUTION WIDTH 11.2 % (11.6-14.8); WHITE BLOOD COUNT 9.5 K/UL (4.8-10.8)
--- NOTE | 2019-12-28 01:57 | NUR ---
ED Nurse Note: Xray at bedside
[2019-12-28 02:04] LABS: ANION GAP 15 mmol/L (5-15); BLOOD UREA NITROGEN 12 mg/dL (7-18); CALCIUM 9.5 MG/DL (8.5-10.1); CARBON DIOXIDE 30 MMOL/L (21-32); CHLORIDE 100 MMOL/L (98-107); CREATININE 0.8 MG/DL (0.55-1.30); POTASSIUM 3.2 MMOL/L (3.5-5.1); SODIUM 145 MMOL/L (136-145)
[2019-12-28 02:08] LABS: ALANINE AMINOTRANSFERASE 18 U/L (12-78); ALBUMIN 3.7 G/DL (3.4-5.0); ALBUMIN/GLOBULIN RATIO 0.9 (1.0-2.7); ALKALINE PHOSPHATASE 88 U/L (46-116); ASPARTATE AMINO TRANSFERASE 13 U/L (15-37); BILIRUBIN,TOTAL 0.3 MG/DL (0.2-1.0)
[2019-12-28 02:11] VITALS: BP 123/65
[2019-12-28 02:11] LABS: APPEARANCE,URINE CLEAR; BILIRUBIN, URINE NEGATIVE (NEGATIVE); COLOR,URINE PALE YELLOW; GLUCOSE, URINE (UA) NEGATIVE (NEGATIVE); KETONES,URINE NEGATIVE (NEGATIVE); LEUKOCYTE ESTERASE ,URINE NEGATIVE (NEGATIVE); NITRITE,URINE NEGATIVE (NEGATIVE); PH,URINE 6.5 (4.5-8.0); PROTEIN,URINE NEGATIVE (NEGATIVE); UROBILINOGEN,URINE NORMAL MG/DL (0.0-1.0)
[2019-12-28] MEDS ORDERED: METOPROLOL SUC100 MG ORAL (03:44)
[2019-12-28 04:00] VITALS: BP 100/52
--- NOTE | 2019-12-28 04:00 | NUR ---
ER DISCHARGE NOTE: Patient is cleared to be discharged per ERMD, pt is aox4, on room air, with stable vital signs. pt was given dc and prescription instructions, pt was able to verbalize understanding, pt id band and iv site removed intact without complications. pt is able to ambulate with steady gait. pt took all belongings. pt stable upon discharge.
--- NOTE | 2019-12-28 11:25 | Diagnostic Imaging Report ---
Procedure: XRAY Chest 1v Reason for study: Chest pain Comparison films: 05/16/2019. FINDINGS: A single one view chest is obtained. Vascularity is normal. The lung prasad are clear bilaterally. Cardiac and mediastinal silhouette are within normal limits. CP angles are sharp. The bony thorax appear unremarkable. IMPRESSION: NO ACUTE CARDIOPULMONARY DISEASE.
--- NOTE | 2019-12-28 14:11 | Cardiology Report ---
APPROVED REPORT EKG Measurement Heart [id number] <Conclusion> Atrial fibrillation Right bundle branch block Abnormal ECG
== END 2019-12-28 04:00 | disposition home or self-care (01) ==
LOC: EDBD 01:24 → EMR 01:45
DX: I48.0 Paroxysmal atrial fibrillation (principal); I10 Essential (primary) hypertension; E66.9 Obesity, unspecified; F17.200 Nicotine dependence, unspecified, uncomplicated; Z79.82 Long term (current) use of aspirin; I45.2 Bifascicular block; Z68.27 Body mass index [BMI] 27.0-27.9, adult
CPT/HCPCS: 36415; 71045; 80053; 81003; 84484; 85025; 93005; 96374; 99284